=== PATIENT | male | born 1995 | race Caucasian/White ===

== ENCOUNTER 2017-07-15 17:12 | Emergency (ER) | payer BC ==
[2017-07-15 17:16] VITALS: TEMP 98.2
--- NOTE | 2017-07-15 17:39 | EDPHY ---
H & P Stated Complaint: right shoulder injury, ran into someone elses shoulder Source: Patient Exam Limitations: No limitations - Personal History Current Tetanus/Diphtheria Vaccine: Unsure Current Tetanus Diphtheria and Acellular Pertussis (TDAP): Unsure - Medical/Surgical History Hx Asthma: No Hx Chronic Respiratory Disease: No Hx Diabetes: No Hx Cardiac Disease: No Hx Renal Disease: No Hx Cirrhosis: No Hx Alcoholism: No Hx HIV/AIDS: No Hx Splenectomy or Spleen Trauma: No Other PMH: DENIES - Social History Smoking Status: Never smoked HPI/ROS: CHIEF COMPLAINT: Right shoulder injury HISTORY OF PRESENT ILLNESS: Patient complains of right shoulder pain. This started abruptly within the past hour after running into another person. This was while playing a game. They hit shoulder shoulder. Sudden onset of severe pain in the right shoulder. Otto as though he may have dislocated the shoulder but he is not sure. The pain does not radiate. It is worse with any kind of movement or palpation. Minimal improvement rest. No numbness or tingling. No weakness. No injury elsewhere. No other associated complaints or modifying factors. Right-hand dominant. PRIOR ORTHO INJURIES: None ESTABLISHED ORTHOPEDIST: None REVIEW OF SYSTEMS: Ten systems reviewed and are negative unless otherwise noted in the HPI EXAMINATION General Appearance: Alert, no distress Cardiovascular: Pulses normal throughout. Symmetric radial pulses 2+. Brisk cap refill Neurological: A&O, sensory symmetric, strength symmetric. No wrist drop Skin: Warm and dry, no rash. No lacerations abrasions or contusions Extremities: Tenderness over the right shoulder primarily over the AC joint. There is no tenderness mid clavicular. Range of motion is limited by pain. There is some flexion, extension of the shoulder. Range of motion distally is intact and symmetric to the left upper extremity. Neurovascular intact distal to the pain Psychiatric: Mood and affect normal DIFFERENTIAL DIAGNOSES: Including but not limited to sprain, strain, fracture, dislocation, hematoma, contusion MDM: 5:35 p.m. Right shoulder injury with apparent AC sprain. No fracture as read by me without the aid of the radiologist. He is neurovascular intact. I will place him in a shoulder sling for comfort. We discussed removing the sling frequently for range of motion exercise. He is weight-bearing as tolerated. Instructed to follow up with Orthopedics for definitive care. He is comfortable this plan and discharged home stable condition, neuro intact 6:30 p.m. Radiologist as interpret this as possible right AC sprain. Patient has been discharged in stable condition. ED Precautions: Worsening pain. Erythema, edema, cyanosis, pallor, paresthesia or anesthesia. (Dylan Beaver) Constitutional: Initial Vital Signs Temperature (C) 36.8 C 07/15/17 17:14 Heart Rate 90 07/15/17 17:14 Respiratory Rate 18 07/15/17 17:14 Blood Pressure 123/83 H 07/15/17 17:14 O2 Sat (%) 93 07/15/17 17:14 O2 Delivery Mode Room Air Allergies/Adverse Reactions: No Known Allergies Allergy (Verified 07/15/17 17:14) Home Medications: Medication Instructions Recorded Acetaminophen/Codeine 300/30Mg 1 each PO Q6 PRN #13 tab 07/15/17 [Tylenol #3 (*)] Medical Decision Making ED Course/Re-evaluation: The patient was evaluated and managed by the physician clinic assistant. I have reviewed this chart and I agree with the findings and plan of care as documented , as indicated by my signature. I am the secondary supervising physician. ( Susan Proctor) Departure - Departure Disposition: Home, Routine, Self-Care Clinical Impression: Sprain of shoulder, right Condition: Good Instructions: Shoulder Sprain (ED) Additional Instructions: 1. Weightbearing as tolerated on the right upper extremity 2. [id number] anti-inflammatories as discussed as needed 3. Sling periodically for comfort. Remove throughout the day for range of motion 4. Follow up with Orthopedics for definitive care 5. ER precautions as discussed Referrals: NONE *PRIMARY CARE P,. [Primary Care Provider] - As per Instructions Abdirizak Pelletier MD [Medical Doctor] - As per Instructions Prescriptions: Acetaminophen/Codeine 300/30Mg [Tylenol #3 (*)] 1 each PO Q6 PRN #13 tab PRN Reason: Pain, Mild
[2017-07-15 18:03] VITALS: BP 128/75; PULSE 89; RESP 16; O2SAT 95
== END 2017-07-15 18:03 | disposition home or self-care (01) ==
DX: S43.401A Unspecified sprain of right shoulder joint, initial encounter (principal); W51.XXXA Accidental striking against or bumped into by another person, initial encounter; Y99.8 Other external cause status; Y93.89 Activity, other specified
CPT/HCPCS: A4565

== ENCOUNTER 2018-07-13 20:38 | Emergency (ER) | payer BC ==
[2018-07-13] MEDS ORDERED: NS 1,000 ML IV ONE (21:00)
--- NOTE | 2018-07-13 21:12 | CPEKG ---
Test Reason : OPEN Blood Pressure : / mmHG Vent. Rate : 086 BPM Atrial Rate : 090 BPM P-R Int : 125 ms QRS Dur : 112 ms QT Int : 353 ms P-R-T Axes : 071 086 047 degrees QTc Int : 423 ms Sinus Confirmed by Abdoulaye Muñoz ([id number]) on 07/13/2018 9:12:22 PM Referred By: Confirmed By:Abdoulaye Muñoz
--- NOTE | 2018-07-13 21:13 | EDPHY ---
H & P Stated Complaint: mario arms tingling, lightheaded today, tachy Time Seen by Provider: 07/13/18 21:05 HPI/ROS: CHIEF COMPLAINT: Anxiety attack HISTORY OF PRESENT ILLNESS: Patient is a 23-year-old man he thinks he had an anxiety attack. He now feels better. He states that about an hour ago he felt both of his hands started tingling and he was hyperventilating his heart was racing. At he does not know what the trigger was. This is never happened before. No lightheadedness. No chest pain. No recent fevers or illness. No history of cardiac or pulmonary disease. His symptoms resolved once he got to the ER and he now feels normal. Severity: Moderate Modifying factors: Arrival to ER REVIEW OF SYSTEMS: Constitutional: denies: chills, fever, recent illness, recent injury EENTM: denies: blurred vision, double vision, nose congestion Respiratory: See HPI denies: cough, shortness of breath Cardiac: See HPI Gastrointestinal/Abdominal: denies: abdominal pain, diarrhea, nausea, vomiting, blood streaked stools Genitourinary: denies: dysuria, frequency, hematuria, pain Musculoskeletal: denies: joint pain, muscle pain Skin: denies: lesions, rash, jaundice, bruising Neurological: denies: headache, numbness, paresthesia, tingling, dizziness, weakness Hematologic/Lymphatic: denies: blood clots, easy bleeding, easy bruising Immunologic/allergic: denies: HIV/AIDS, transplant 10 systems reviewed and negative except as noted EXAM: GENERAL: Well-appearing, well-nourished and in no acute distress. HEAD: Atraumatic, normocephalic. EYES: Pupils equal round and reactive to light, extraocular movements intact, sclera anicteric, conjunctiva are normal. ENT: TMs normal, nares patent, oropharynx clear without exudates. Moist mucous membranes. NECK: Normal range of motion, supple without lymphadenopathy or JVD. LUNGS: Breath sounds clear to auscultation bilaterally and equal. No wheezes rales or rhonchi. HEART: Regular rate and rhythm without murmurs, rubs or gallops. ABDOMEN: Soft, nontender, normoactive bowel sounds. No guarding, no rebound. No masses appreciated. BACK: No CVA tenderness, no spinal tenderness, step-offs or deformities EXTREMITIES: Normal range of motion, no pitting or edema. No clubbing or cyanosis. NEUROLOGICAL: Cranial nerves II through XII grossly intact. Normal speech, normal gait. 5/5 strength, normal movement in all extremities, normal sensation , normal reflexes PSYCH: Normal mood, normal affect. SKIN: Warm, dry, normal turgor, no visible rashes or lesions. Source: Patient Exam Limitations: No limitations - Personal History Current Tetanus Diphtheria and Acellular Pertussis (TDAP): Yes - Medical/Surgical History Hx Asthma: No Hx Chronic Respiratory Disease: No Hx Diabetes: No Hx Cardiac Disease: No Hx Renal Disease: No Hx Cirrhosis: No Hx Alcoholism: No Hx HIV/AIDS: No Hx Splenectomy or Spleen Trauma: No Other PMH: DENIES - Family History Significant Family History: No pertinent family hx - Social History Smoking Status: Never smoked Alcohol Use: Sober Drug Use: None Constitutional: Initial Vital Signs Temperature (C) 37.6 C 07/13/18 20:46 Heart Rate 98 07/13/18 20:46 Respiratory Rate 20 07/13/18 20:46 Blood Pressure 141/80 H 07/13/18 20:46 O2 Sat (%) 94 07/13/18 20:46 O2 Delivery Mode Room Air Allergies/Adverse Reactions: No Known Allergies Allergy (Verified 07/15/17 17:14) Home Medications: Medication Instructions Recorded Acetaminophen/Codeine 300/30Mg 1 each PO Q6 PRN #13 tab 07/15/17 [Tylenol #3 (*)] Medical Decision Making - Diagnostics EKG Interpretation: An EKG obtained and was read and documented in trace view. Please see trace view for full reading and report. Sinus rhythm, early repolarization pattern no arrhythmia ED Course/Re-evaluation: The patient is now completely well appearing. He thinks that he had a panic attack. He has never had 1 of these before. He feels completely fine now. Lab work was taken. We will check an i-STA T. His EKG is also reassuring. He has never had any chest pain. He denies any trauma or neck pain. Differential Diagnosis: Partial list of the Differential diagnosis considered include but were not limited to; anxiety attack, arrhythmia, electrolyte abnormality and although unlikely based on the history and physical exam, I also considered cervical spine injury, meningitis, sepsis. I discussed these differential diagnoses and the plan with the patient as well as the usual and expected course. The patient understands that the diagnosis is provisional and that in medicine we are not always correct and that further workup is often warranted. Usual and customary warnings were given. All of the patient's questions were answered. The patient was instructed to return to the emergency department should the symptoms at all worsen or return, otherwise to followup with the physician as we discussed. - Data Points Laboratory Results: 07/13/18 21:16 POC Hgb 14.3 gm/dL gm/dL (13.7-17.5) POC Hct 42 % % (40-51) POC Sodium 138 mEq/L mEq/L (135-145) POC Potassium 3.1 mEq/L L mEq/L (3.3-5.0) POC Chloride 98 mEq/L mEq/L (97-110) POC BUN 7 mg/dL mg/dL (7-23) POC Creatinine 0.9 mg/dL mg/dL (0.7-1.3) POC Glucose 111 mg/dL H mg/dL (70-100) Medications Given: Discontinued Medications Sodium Chloride (Ns) 1,000 mls @ 0 mls/hr IV ONCE ONE; Wide Open PRN Reason: Protocol Stop: 07/13/18 21:01 Last Admin: 07/13/18 21:11 Dose: 1,000 mls Point of Care Test Results: Chemistry 07/13/18 21:16 POC Sodium 138 mEq/L mEq/L (135-145) POC Potassium 3.1 mEq/L L mEq/L (3.3-5.0) POC Chloride 98 mEq/L mEq/L (97-110) POC BUN 7 mg/dL mg/dL (7-23) POC Creatinine 0.9 mg/dL mg/dL (0.7-1.3) POC Glucose 111 mg/dL H mg/dL (70-100) ISTAT H&H 07/13/18 21:16 POC Hgb 14.3 gm/dL gm/dL (13.7-17.5) POC Hct 42 % % (40-51) Departure - Departure Disposition: Home, Routine, Self-Care Clinical Impression: Anxiety attack Condition: Fair Instructions: Anxiety (ED) Referrals: NONE *PRIMARY CARE P,. [Primary Care Provider] - As per Instructions [facility],. [Clinic] - 2-3 days, call for appt.
[2018-07-13 22:03] VITALS: BP 131/78
== END 2018-07-13 22:02 | disposition home or self-care (01) ==
DX: F41.9 Anxiety disorder, unspecified (principal)
CPT/HCPCS: 82435-PO; 82565-PO; 82947-PO; 84132-PO; 84295-PO; 84520-PO; 85014-PO